=== PATIENT | female | born 1970 | race Asian ===

== ENCOUNTER 2016-06-17 12:28 | Inpatient (IN) | payer MEDICAID ==
[~2016-06-17] VITALS: Ht 156.2 cm; Wt 64.0 kg
--- NOTE | ~2016-06-17 | ECH ---
Transthoracic Echocardiography Report (TTE) Demographics Patient Name ARA, Date of Study 06/20/2016 [place] Patient Number [id number] Visit Number [id number] Date of 1970 Room Number 505 Accession Number [id number] Gender Female Age 46 year(s) Referring Edd Vasquez MD Room Cooler Installer Rosaura Castellanos Physician Kai Strickland MD [facility] Physician Interpreting King Mau Ugalde MD Piledriver Carpenter Physician Supervising Ordering Physician Kai Strickland MD/RUBEN WHEELER Nurse Stress Medical Device Sales Representative Conclusions Contractility Score Summary Normal Left Ventricular contractility was noted. Summary Technically good exam. The estimated left ventricular ejection fraction is 60%. Diastolic assessment reveals Grade I diastolic dysfunction. The left atrium is mildly dilated by LA volume index measurement. Mild tricuspid regurgitation by color Doppler. There is mild pulmonary hypertension. The pulmonary pressure (RVSP) is 40 mmHg. No evidence of valvular endocarditis. Procedure Type of Study TTE procedure:Echo Complete SF. Procedure Date Date: 06/20/2016 Start: 02:31 PM Technical Quality: Good visualization Additional Indications:Sepsis,Peritonitis,History of drug abuse Appropriate Use Criteria: 7 Height: 61 inches Weight: 134 pounds BSA: 1.59 m Rhythm: NSR HR: 88 bpm BP: 109/80 mmHg M-Mode/2D Measurements LV Diastolic Dimension: 4.38 cm LV Systolic Dimension: 3.34 cm LV Septum Diastolic: 0.63 cm LV PW Diastolic: 0.58 cm AO Root Dimension: 2.64 cm Cardiac Output: 4.18 l/min LA Dimension: 3.17 cm Cardiac Index: 2.63 l/min*m RV Diastolic Dimension: 2.77 cm LA volume index: 36 ml/m LVOT: 1.86 cm LVOT VTI: 17.47 cm RV Base: 3.4 cm LV Stroke volume: 47.44 ml RV Mid: 2.3 cm LV Stroke volume index: 29.84 ml/m TAPSE: 1.8 cm TDI-S': 11 cm/s Doppler Measurements AV Peak Velocity: 1.2 m/s MV Peak E-Wave: 0.85 m/s AV Peak Gradient: 5.76 mmHg MV Peak A-Wave: 0.85 m/s AV Mean Gradient: 3.64 mmHg MV E/A Ratio: 1 LVOT Peak Velocity: 0.97 m/s MV P1/2t: 44.5 msec AV Area (Continuity):2.07 cm MV Deceleration Time: 140.9 msec TR Velocity:2.95 m/s MV Area (PHT): 4.95 cm TR Gradient:34.81 mmHg PV Peak Velocity: 0.84 m/s Estimated RAP:5 mmHg PV Peak Gradient: 2.8 mmHg Estimated RVSP: 40 mmHg Estimated PASP: 39.81 mmHg E' Septal Velocity: 0.06 m/s A' Septal Velocity: 0.08 m/s E' Lateral Velocity: 0.1 m/s A' Lateral Velocity: 0.11 m/s RA Area: 9.9 cm Findings Left Ventricle Normal left ventricle size and function. Diastolic assessment reveals Grade I diastolic dysfunction. Right Ventricle Normal right ventricle structure and function. Left Atrium The left atrium is mildly dilated by LA volume index measurement. Right Atrium Normal right atrial size. Mitral Valve Normal mitral valve structure and function. Mild mitral regurgitation by color Doppler. Aortic Valve Normal aortic valve structure and function. Tricuspid Valve Normal tricuspid valve structure and function. Mild tricuspid regurgitation by color Doppler. There is mild pulmonary hypertension. The pulmonary pressure (RVSP) is 40 mmHg. Pulmonic Valve Normal pulmonic valve structure and function. Mild pulmonic valve regurgitation by color Doppler. Pericardial Effusion No evidence of pericardial effusion. Miscellaneous Visualized portions of the aortic root and ascending aorta appear normal in size. Pleural Effusion No evidence of pleural effusion. Contractility Score LV regional wall motion:(0-Non visualized 1-Normal 2-Hypokinesis 3-Akinesis 4-Dyskinesis 5-Aneurysm) Signature
--- NOTE | 2016-06-18 12:15 | ER ---
ADMIT: 06/17/2016 RM/LOC: ER [facility] MR#: [id number] [address] [address] LAWRENCE BULLOCK [address] [place] [address] Emergency Room Report SEX: F AGE: 46 : 1970 DATE: 06/17/2016 This 46-year-old, comes to the Emergency Department with abdominal pain times past 2 or 3 days and the temperature of 102. She has a history of ovarian cancer with peritoneal involvement as well as metastases to the lungs. Said the pain has been present for weeks but it has gotten worse. She is on a fentanyl patch as well as hydrocodone and Neurontin for pain control but has not been able to get on top of this pain. She denies nausea or vomiting. No cough. No shortness of breath. No chest pain. It is diffuse, sharp, crampy abdominal pain. PAST HISTORY: As mentioned ovarian CA with metastasis. PHYSICAL EXAM: GENERAL: This is a middle-aged lady in no acute distress. LUNGS: Clear to auscultation. CARDIOVASCULAR: Regular rate and rhythm. No murmurs, rubs, or gallops. ABDOMEN: Diffusely tender with guarding and rebound. EXTREMITIES: Unremarkable. 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 LABORATORY DATA: CBC was done at Oncology today white count was 1.6, hemoglobin of 11.9, platelets were 131,000, and absolute neutrophil count was 1.1. She was started on Levaquin from Oncology orally. UA showed 7 wbc's and many bacteria. CMP was done in the Emergency Department, was essentially unremarkable. CT scan of the abdomen showed no acute changes. The patient was being admitted for intractable abdominal pain. She was given 1 mg of Dilaudid in the Emergency Department which helped substantially. She should be admitted to adjust her pain medicine prior to being discharged home. DIAGNOSIS: Intractable abdominal pain secondary to ovarian cancer with metastasis. Benji Crespo MD/ laura JOB #: [id number] CC: Benji Crespo MD, Attending Physician
--- NOTE | 2016-06-21 09:37 | CO ---
ADMIT: 06/17/2016 RM/LOC: 505 [facility] MR#: [id number] [address] [address] LAWRENCE BULLOCK [address] [place] [address] Consultation SEX: F AGE: 46 : 1970 DATE OF CONSULTATION: 06/20/2016 ATTENDING PHYSICIAN: Noel Puga CONSULTING PHYSICIAN: Jodi Quinn MD REASON FOR CONSULT: Peritonitis. HISTORY OF PRESENT ILLNESS: The patient is a 46-year-old woman with history of metastatic ovarian cancer diagnosed in 2012. She is currently undergoing chemotherapy and her last chemotherapy was 1 week prior to admission. She presented to the ER with complaining of severe abdominal pain and fevers. It was associated with nausea and vomiting. She also has history of recurrent ascites and undergoes frequent paracentesis with Interventional Radiology. Last paracentesis was done on June 01, 2016. She underwent a CT scan and abdominal ultrasound and paracentesis which was suggestive of peritonitis. Total wbc of 4580 in the peritoneal fluid and 98% of polymorphonuclear wbc. Peritoneal fluid culture is growing yeast and additional organisms likely anaerobes. She was started on Zosyn and later micafungin was added. She was neutropenic at the time of admission and is getting Granix. 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 PAST MEDICAL HISTORY: 1. Metastatic ovarian cancer diagnosed in 2012 status post debulking surgery. 2. Recurrent ascites. 3. Intractable abdominal pain. FAMILY HISTORY: Significant for diabetes mellitus in her mother. SOCIAL HISTORY: Patient smokes 1 pack which lasts her for 3 days. Denies any alcohol. She has history of meth and marijuana use in the past. ALLERGIES: NO KNOWN DRUG ALLERGIES. CURRENT MEDICATIONS: Include: 1. Colace. 2. MiraLax. 3. Neurontin. 4. Protonix. 5. Senokot. 6. Granix. 7. Micafungin 100 mg once daily. 8. Zosyn 3.375 g every 8 hours. REVIEW OF SYSTEMS: Ten-point review of systems negative except as mentioned in HPI. PHYSICAL EXAMINATION: VITAL SIGNS: Current temperature 97.9, T-max 100.3, ADMIT: 06/17/2016 RM/LOC: 505 [facility] MR#: [id number] [address] [address] [facility] [address] [place] [address] Consultation SEX: F AGE: 46 : 1970 heart rate 98, respirations 20, blood pressure 109/80 and 99% on room air. GENERAL: No acute distress. HEENT. Head, normocephalic and atraumatic. Extraocular movements intact. Oral mucosa dry. LYMPH: No palpable anterior/posterior cervical or supraclavicular lymphadenopathy. CHEST: Decreased breath sounds bilaterally. CARDIOVASCULAR: S1 and S2 heard. Regular rate and rhythm. ABDOMEN: Distended. Diffuse tenderness to palpation. Ascites noted. Active bowel sounds. PSYCH: Normal affect. Memory intact. SKIN: No rash noted on exposed skin. DATA REVIEW: Per HPI. CT scan of abdomen and pelvis showed metastatic ovarian cancer, stable findings. Vworjaff-zx-vrehi ascites, with increased peritoneal enhancement. ASSESSMENT: 1. Neutropenic fever secondary to 2. Fungal peritonitis. 3. Polymicrobial peritonitis. 4. Metastatic ovarian cancer. 5. Neutropenia. 6. History of recreational drug use. 7. Recurrent ascites. 8. Intractable abdominal pain. PLAN: Given the yeast in the peritoneal fluid, I will continue her on micafungin. The peritoneal fluid also growing additional organisms likely anaerobes. Hence, I will continue her on Zosyn for now. Her blood cultures have been no growth to date. Given her history of recreational drug use, I will also check HIV and hepatitis B and C antibody. Her neutropenia is resolving. We will follow her closely. Thank you for the consult and I will continue to follow. Jodi Quinn MD/ laura JOB #: [id number] CC: Noel Puga, Attending Physician Noel Puga, Family Physician
--- NOTE | 2016-06-23 21:48 | HP ---
ADMIT: 06/17/2016 RM/LOC: 505 [facility] MR#: [id number] [address] [address] LAWRENCE BULLOCK [address] [place] [address] History and Physical SEX: F AGE: 46 : 1970 DATE OF SERVICE: 06/17/2016 HISTORY OF PRESENT ILLNESS: This is a 46-year-old female with a past medical history of metastatic ovarian cancer on treatment with gemcitabine, Abraxane, and Avastin. She is admitted with abdominal pain and fevers that have worsened over the past day, who reports the fever of 102 degrees last night and she took some Aleve at that time. Abdominal pain is sharp and has worsened over the past few days. She started a Fentanyl patch on Monday, which has helped minimally. She does report she has had multiple paracentesis to extract fluid from her abdomen and feels like she is reaccumulating fluid. Reports abdominal pain is generalized and there is no particular area that hurts worse. Denies any nausea, vomiting, diarrhea, or constipation. She is still having bowel movements. Denies any changes in urination. No dysuria, incontinence, increased frequency. She denies any abdominal surgeries and reports that she thinks she still has a gallbladder and appendix, however, per chart review, it appears she has had a debulking surgery at [facility] in 2012. Denies any alleviating factors. Reports pain is worse with any movement or palpation. REVIEW OF SYSTEMS: CONSTITUTIONAL: Endorses fatigue and malaise and fevers. HEENT: No congestion, rhinorrhea, sore throat. RESPIRATORY: No shortness of breath, cough. CARDIOVASCULAR: No chest pain, chest tightness, palpitations. SKIN: No rashes, redness, swelling. Denies tenderness or redness over port site. All other systems are negative except for what is listed in the HPI. PAST MEDICAL HISTORY: 1. Metastatic ovarian cancer with mets to liver and spleen, status post debulking surgery at [facility] in 2012. 2. Paracentesis performed regularly, the last being on June 01 where 2.75 L of ascitic fluid was removed. FAMILY HISTORY: Noncontributory. SOCIAL HISTORY: The patient is a current smoker and denies nicotine patch. Denies alcohol or other drug use currently. PHYSICAL EXAMINATION: VITAL SIGNS: At time of exam include temperature of 100.1 degrees Fahrenheit, pulse of 104, respiratory rate of 18, blood pressure 117/85, oxygen saturation 95% on room air. GENERAL: Alert and oriented, in moderate distress due to pain, appears non- toxic. HEENT: Mucous membranes moist, poor dentition, pharynx non-erythematous and without lesions. No cervical lymphadenopathy noted. Conjunctiva non-injected bilaterally. CARDIOVASCULAR: Slightly tachycardic, otherwise regular rate and rhythm, no murmurs or gallops noted. RESPIRATORY: Lungs clear to auscultation bilaterally. Normal respiratory ADMIT: 06/17/2016 RM/LOC: 505 [facility] MR#: [id number] [facility] [address] [id number] [place] [address] History and Physical SEX: F AGE: 46 : 1970 effort. Normal work of breathing. GASTROINTESTINAL: Diffusely tender to palpation in all 4 quadrants of abdomen. Abdomen mildly distended. Scar is noted, otherwise no lesions noted. Normal bowel sounds, abdomen soft. SKIN: Port site non-erythematous, no induration, nontender. Peripheral IV on right forearm, nontender, non-erythematous. No other skin lesions noted. NEUROLOGIC: Moving all 4 extremities. Cranial nerves grossly intact. ASSESSMENT AND PLAN: A 46-year-old female with metastatic ovarian cancer admitted with acute worsening of abdominal pain and fevers concerning for bacterial peritonitis. 1. Sepsis. a. Suspect secondary to bacterial peritonitis, has had a recent paracentesis on June 01. Blood and urine cultures are pending. b. We will start Zosyn to cover for spontaneous bacterial peritonitis and also other potential etiologies. Methicillin-resistant Staphylococcus aureus coverage not dictated at this time as the patient has no signs or symptoms concerning for skin infections and port site looks clear. We will plan for therapeutic and diagnostic paracentesis tomorrow morning and we will obtain bedside cultures. Continue p.r.n. Tylenol for fevers. 2. Metastatic ovarian cancer. a. Dr. Garcia evaluated the patient in hospital today. b. Recently received gemcitabine, Abraxane, and Avastin. c. ANC 1.1. d. Has had frequent therapeutic paracentesis to remove ascites fluid. e. CT showing again moderate to large ascites even after 2.75 L was removed on 06/01/2016. Suspect therapeutic paracentesis will partially remove some of the patient's pain. f. We will continue Fentanyl patch and home oxycodone. We will add ADMIT: 06/17/2016 RM/LOC: 505 [facility] MR#: [id number] [address] [place] [address] History and Physical SEX: F AGE: 46 : 1970 Dilaudid 1 mg every two hours p.r.n. for severe pain. The patient also has Tylenol available for pain and fever. 3. Mild hypercalcemia. a. Corrected calcium 2.6. We will start normal saline at 125 mL/hr and recheck in the a.m. Renal function and other electrolytes are within normal limits. 4. Disposition: Admit to medical floor, final disposition pending, but expectation will require hospitalization of a few days. 5. Full code. 6. Deep venous thrombosis prophylaxis: Holding Lovenox for paracentesis tomorrow. 7. Diet: General diet as tolerated. Hemalatha Samano MD / Noel Puga MD / laura JOB #: [id number] CC: Noel Puga, Attending Physician Noel Puga, Family Physician
[2016-06-29] MEDS ORDERED: COLACE-DPS100 MG PO (12:58)
[2016-06-29] MEDS ORDERED: MILK OF MAGNESI10 ML PO (12:59)
[2016-06-29] MEDS ORDERED: MIRALAX PACKET17 GM PO (12:59)
[2016-06-29] MEDS ORDERED: SENOKOT DPS8.6 MG PO (12:59)
[2016-06-29] MEDS ORDERED: NEURONTIN DPS300 MG PO (12:59)
[2016-06-29] MEDS ORDERED: PROTONIX40 MG PO (12:59)
[2016-06-29] MEDS ORDERED: DURAGESIC1 EAC1 TP (13:00)
[2016-06-29] MEDS ORDERED: INVANZ1 GM IV (13:01)
[2016-06-29] MEDS ORDERED: MYCAMINE100 MG IV (13:02)
[2016-06-29] MEDS ORDERED: DILAUDID2 MG PO (13:02)
[2016-06-29] MEDS ORDERED: LOVENOX DP40 MG/0.4 SQ (13:03)
[2016-06-29] MEDS ORDERED: NEURONTIN DPS600 MG PO (13:04)
--- NOTE | 2016-06-29 21:04 | DS ---
ADMIT: 06/17/2016 RM/LOC: 505 [facility] MR#: [id number] [address] [address] LAWRENCE BULLOCK [address] [place] [address] Discharge Summary SEX: F AGE: 46 : 1970 ADMISSION DATE: 06/17/2016 DISCHARGE DATE: 06/28/2016 CONSULTATIONS: 1. Meet Garcia MD, with Oncology. 2. Jodi Quinn MD, with Infectious Disease. DIAGNOSES: 1. Metastatic ovarian cancer. 2. Polymicrobial peritonitis. 3. Fungal peritonitis with obinna tropicalis. 4. Intractable pain secondary to malignancy and peritonitis. REASON FOR ADMISSION: The patient is a 46-year-old female with an extensive past medical history from an Oncology standpoint. Presented to the emergency room with fevers, worsening abdominal pain. Admitted for further stabilization. HOSPITAL COURSE: The patient was admitted. Placed on increasing pain medication regimen. Ultimately underwent a diagnostic paracentesis. Ultimately grew multiple organisms, both bacterial as well as fungal. Placed on broad-spectrum antibiotics and antifungals. Infectious Disease was consulted. They tailored the antibiotic and antifungal regimen. 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 Ultimately able to titrate up her Duragesic patch as well as her oral Dilaudid to a reasonable level to where she felt it was able to be transitioned for an outpatient regimen. Long discussions were had with her regarding overall goals of care. End of life discussion. She wishes to hold off on this at this point in time. Arrangements were made for her to go to assisted facility for her IV antibiotics at this time. She will have follow up with Oncology per their plan in the next week or two. Follow up with me to establish in the clinic in the next couple of weeks as well. DISCHARGE MEDICATIONS: Please see discharge MAR which I fully reviewed. She will be on ertapenem as well as some micafungin IV. Noel Puga MD/ kayla JOB #: [id number] CC: Noel Puga MD, Attending Physician Noel Puga MD, Family Physician
--- NOTE | 2016-07-01 09:47 | CO ---
ADMIT: 06/17/2016 RM/LOC: 505 [facility] MR#: [id number] [address] [address] LAWRENCE VELAZQUEZ [address] [place] [address] Consultation SEX: F AGE: 46 : 1970 DATE OF CONSULTATION: 06/17/2016 ATTENDING PHYSICIAN: Noel Puga MD CONSULTING PHYSICIAN: Meet Garcia MD REASON FOR CONSULTATION: 1. Stage IV ovarian cancer. 2. Peritonitis and positive ascites. HISTORY AND PHYSICAL: Mrs. Velazquez is a 46-year-old, pleasant woman, very well-known to me, has a stage IV ovarian cancer, just recently started chemotherapy with gemcitabine, Avastatin, and Taxol. She did receive Opdivo in the past, but her cancer had not responded to it. Currently, she was admitted due to severe abdominal pain. A CT scan was done, but did not show any obstruction, looks like she has bacterial peritonitis due to the ascites that she has from the ovarian cancer. The patient is not getting antibiotics and ID is also consulted. She is on pain control with a OUTDOOR ILLUMINATING ENGINEER pump as well as a fentanyl patch. She does not have any good care and support at home. She denies any vomiting. She denies any diarrhea. Denies any shortness of breath, but her shortness of breath and mild chest pain is because of her severe, severe abdominal pain. PAST MEDICAL HISTORY: Stage IV ovarian cancer, on chemotherapy. SOCIAL HISTORY: She was ex-IV drug abuser, but currently she denies any illicit drug use. Denies any smoking or drinking alcohol. FAMILY HISTORY: Noncontributory. She was adopted. ALLERGIES: SHE IS ALLERGIC TO CARBOPLATIN. PER THE PATIENT, SHE DOES NOT KNOW WHAT HAPPENS WITH THE CARBOPLATIN, BUT HAD A VERY BAD REACTION IN THE PAST. MEDICATIONS: She is on antibiotics. Please review the medication list. She is also getting chemotherapy, gemcitabine, Abraxane, and Avastin. REVIEW OF SYSTEMS: GENERAL: In moderate discomfort due to pain in the abdomen. RESPIRATORY: Mild shortness of breath due to the pain in the abdomen, ascites. CARDIOVASCULAR: No chest pain. ENDOCRINOLOGY: No polyuria. No polydipsia. GENITOURINARY: No urgency. No frequency. GASTROINTESTINAL: No nausea. No vomiting. No diarrhea. NUTRITION: Adequate. INFECTION: No fevers. SKIN: No rash. EXTREMITIES: No swelling. ADMIT: 06/17/2016 RM/LOC: 505 [facility] MR#: [id number] [address] [address] [facility]ICKI VELAZQUEZSAN FRANCISCO [address] [place] [address] Consultation SEX: F AGE: 46 : 1970 PHYSICAL EXAMINATION: VITAL SIGNS: Temperature 100.1, pulse 104, respirations 18, and blood pressure 117/85. HEENT: Normocephalic, atraumatic. LUNGS: Clear. HEART: S1, S2 heard. Regular rate and rhythm. ABDOMEN: Distended. Tender on palpation. Positive bowel sounds. EXTREMITIES: No edema. NEUROLOGIC: Alert, awake, and oriented x3. LYMPHATICS: No abnormal lymph nodes palpated. SKIN: No rash. LABORATORY DATA: WBC is 1.6, hemoglobin 11.9, and platelet 131. Normal kidney and normal LFTs. CT scan of the abdomen, findings noted. IMPRESSION AND RECOMMENDATIONS: Mrs. Velazquez is a 46-year-old woman, very well known to me, has a history of stage IV metastatic ovarian cancer, on chemotherapy, was admitted due to severe abdominal pain, likely infective peritonitis. 1. Ascites with severe abdominal pain, likely infective peritonitis. Her primary doctor is on board, probably she needs to get paracentesis and sent for the cultures. She is on antibiotics, continue that, and ID will be consulted if it is positive. Dr. Puga is taking care of her at this point of time. I will follow up very closely. She will probably need PleurX prior to going home due to the recurrent malignant ascites on top of now she probably is developing infective peritonitis. 2. Stage IV ovarian cancer, on chemotherapy. She will not get chemotherapy until her infection clears out. The chemotherapy will be on hold now. She was getting gemcitabine, Abraxane, and Avastin. 3. Neutropenia, likely from chemotherapy. She will need Granix to support her count because of suspicious of infection in her abdomen. I have reviewed all the medical records. I have also discussed with the patient in detail. I have spent 60 minutes of time reviewing the records, discussing with the patient about the treatment plan, workup needed to be done, prognosis of the ovarian cancer, and more than 50% of my time was spent on those discussions. Thank you for your consultation and the opportunity in taking care of the patient. Meet Garcia MD/ laura JOB #: [id number] CC: Noel Puga MD, Attending Physician Noel Puga MD, Family Physician
[2016-08-21] MEDS ORDERED: MICRO-K DPS10 MEQ PO (15:53)
[2016-08-21] MEDS ORDERED: ALEVE220 M1 PO (15:54)
[2016-08-21] MEDS ORDERED: COMPAZINE10 MG PO (15:55)
[2016-08-21] MEDS ORDERED: LEVAQUIN DPS500 MG PO (15:55)
[2016-09-10] MEDS ORDERED: DECADRON-DPS4 MG PO (11:28)
[2016-09-10] MEDS ORDERED: LEXAPRO DPS10 MG PO (11:29)
[2016-09-10] MEDS ORDERED: MAG-OX400 MG PO (11:29)
[2016-09-10] MEDS ORDERED: NYSTATIN100000 UNI PO (11:30)
[2016-09-10] MEDS ORDERED: ZYVOX600 MG PO (11:31)
[2016-09-10] MEDS ORDERED: TYLENOL DPS325 MG PO (11:31)
[2016-09-10] MEDS ORDERED: ZOFRAN4 MG PO (11:34)
[2016-09-10] MEDS ORDERED: MYCAMINE100 MG IV (11:54)
== END 2016-06-28 17:08 | DRG 867 ==
LOC: ER 12:28 → 5MS 15:15
PROVIDERS: ADMIT Internal Medicine
PROC: 0W9G3ZX Drainage of Peritoneal Cavity, Percutaneous Approach, Diagnostic (ICD-10-PCS; principal; 2016-06-20)
PROC: 0W9G30Z Drainage of Peritoneal Cavity with Drainage Device, Percutaneous Approach (ICD-10-PCS; 2016-06-23)
PROC: 30233N1 Transfusion of Nonautologous Red Blood Cells into Peripheral Vein, Percutaneous Approach (ICD-10-PCS; 2016-06-24)
DX: B37.89 Other sites of candidiasis (principal); K65.8 Other peritonitis; K65.1 Peritoneal abscess; R18.0 Malignant ascites; C78.6 Secondary malignant neoplasm of retroperitoneum and peritoneum; C78.02 Secondary malignant neoplasm of left lung; C78.01 Secondary malignant neoplasm of right lung; E83.52 Hypercalcemia; E46 Unspecified protein-calorie malnutrition; C78.89 Secondary malignant neoplasm of other digestive organs; C78.7 Secondary malignant neoplasm of liver and intrahepatic bile duct; D70.1 Agranulocytosis secondary to cancer chemotherapy; B96.89 Other specified bacterial agents as the cause of diseases classified elsewhere; D64.81 Anemia due to antineoplastic chemotherapy; G89.3 Neoplasm related pain (acute) (chronic); F17.210 Nicotine dependence, cigarettes, uncomplicated; Z85.43 Personal history of malignant neoplasm of ovary

== ENCOUNTER 2016-07-01 17:13 | Emergency (ER) | payer MEDICAID ==
[~2016-07-01 17:13] MED LIST: COLACE-DPS100 MG PO; DILAUDID2 MG PO; DURAGESIC1 EAC1 TP; INVANZ1 GM IV; LOVENOX DP40 MG/0.4 SQ; MILK OF MAGNESI10 ML PO; MIRALAX PACKET17 GM PO; MYCAMINE100 MG IV; NEURONTIN DPS300 MG PO; NEURONTIN DPS600 MG PO; PROTONIX40 MG PO; SENOKOT DPS8.6 MG PO
--- NOTE | 2016-07-09 08:11 | ER ---
ADMIT: 07/01/2016 RM/LOC: ER [facility] MR#: [id number] [address] [address] [place] [address] [place] [id number] Emergency Room Report SEX: F AGE: 46 : 1970 DATE: 07/01/2016 ADDENDUM: CHIEF COMPLAINT: Abdominal drain producing more drainage. HISTORY OF PRESENT ILLNESS: This is a 46-year-old who has a history of ovarian cancer with metastasis. She has ascites with it. Just recently on Monday, she had Sincere-Rodriguez drain placed into her abdomen for bacterial and fungal spontaneous peritonitis. At this time, she is receiving antibiotic and antifungals over at [facility]. Again, they were concerned about the magnitude of her drainage, so sent her to the ER to be evaluated. PAST MEDICAL HISTORY: 1. Metastatic ovarian cancer. 2. Pancreatitis. 3. Ascites. MEDICATIONS: Please see nurse's note. ALLERGIES: CARBOPLATIN. SOCIAL HISTORY: Denies any tobacco, drug, or alcohol use. FAMILY HISTORY: Noncontributory. REVIEW OF SYSTEMS: CONSTITUTIONAL: She denies any fevers, chills, or sweats. CARDIOVASCULAR AND RESPIRATORY: Denies any chest pain or shortness of breath. I did notice that she was slightly tachycardic. She denies feeling any palpitations with that. GASTROINTESTINAL AND GENITOURINARY: Denies any nausea, vomiting, or diarrhea. She says she does have some [id number] abdominal pain, but the medications they are giving her are controlling her pain. All systems otherwise negative. PHYSICAL EXAMINATION: VITAL SIGNS: Blood pressure 124/80, pulse is 124, respirations 18, temperature 98.2, and saturation of oxygen is 97% on room air. GENERAL APPEARANCE: In no acute distress and alert. In fact, when she gets here, she says she is hungry and asked for a sandwich right away. HEENT: Pharynx is moist. No tonsillar swelling or exudate. HEART: Tachycardic, but no murmurs, rubs, or gallops. LUNGS: CTA bilaterally. No wheezes, rales, or rhonchi. ABDOMEN: Soft, really actually not distended at this time. She does have tenderness more on the left upper and lower quadrants than the right that is where her drain is. It does seem to be draining without any difficulty. SKIN: Normal color, warm, and dry. No rashes noted. NEURO AND PSYCH: She is alert and oriented x3. Mood and affect normal. MUSCULOSKELETAL: Full range of motion with all extremities. ADMIT: 07/01/2016 RM/LOC: ER [facility] MR#: [id number] [address] [place] [address] Emergency Room Report SEX: F AGE: 46 : 1970 COURSE IN THE EMERGENCY ROOM: CBC showed a white count of 8.1, which is improved from 4 days ago, hemoglobin 9.2, and platelets are 1020. Procalcitonin is elevated at 11.15. Her urine is clear. Lactic acid is 1.7. CMP is normal except for potassium of 3.2, albumin low at 1.4, BUN of 4. Ultrasound is done. It does show increased fluid in the left side of the abdomen compared to previous ultrasound. Dr. Pride was called at 1955 hours regarding this patient. At this time, we both agreed that she is okay to go back to skilled care, continue her antibiotic and antifungal as prescribed. I am going to put in an order per Dr. Pride for Monday to have IR evaluate for another drain. CLINICAL IMPRESSION: 1. Ovarian cancer with metastasis and ascites. 2. Spontaneous peritonitis of both multibacterial and fungal. DISPOSITION: Stable at discharge and will follow up with Dr. Puga next week and be evaluated for another drain on Monday. TINA Pitts / Benji Crespo MD / modl JOB #: [id number] CC: Benji Crespo MD, Attending Physician
[2016-08-21] MEDS ORDERED: MICRO-K DPS10 MEQ PO (15:53)
[2016-08-21] MEDS ORDERED: ALEVE220 M1 PO (15:54)
[2016-08-21] MEDS ORDERED: LEVAQUIN DPS500 MG PO (15:55)
[2016-08-21] MEDS ORDERED: COMPAZINE10 MG PO (15:55)
[2016-09-10] MEDS ORDERED: DECADRON-DPS4 MG PO (11:28)
[2016-09-10] MEDS ORDERED: MAG-OX400 MG PO (11:29)
[2016-09-10] MEDS ORDERED: LEXAPRO DPS10 MG PO (11:29)
[2016-09-10] MEDS ORDERED: NYSTATIN100000 UNI PO (11:30)
[2016-09-10] MEDS ORDERED: TYLENOL DPS325 MG PO (11:31)
[2016-09-10] MEDS ORDERED: ZYVOX600 MG PO (11:31)
[2016-09-10] MEDS ORDERED: ZOFRAN4 MG PO (11:34)
[2016-09-10] MEDS ORDERED: MYCAMINE100 MG IV (11:54)
== END 2016-07-01 20:15 | disposition home or self-care (01) ==
LOC: ER 17:13
DX: C56.9 Malignant neoplasm of unspecified ovary (principal); C79.9 Secondary malignant neoplasm of unspecified site; R18.0 Malignant ascites; K65.2 Spontaneous bacterial peritonitis; Z88.8 Allergy status to other drugs, medicaments and biological substances

== ENCOUNTER → 2016-07-12 | Outpatient (CLI) | payer MEDICAID ==
[~2016-07-12] MED LIST changes: +ALEVE220 M1 PO; +COMPAZINE10 MG PO; +DECADRON-DPS4 MG PO; +LEVAQUIN DPS500 MG PO; +LEXAPRO DPS10 MG PO; +MAG-OX400 MG PO; +MICRO-K DPS10 MEQ PO; +NYSTATIN100000 UNI PO; +TYLENOL DPS325 MG PO; +ZOFRAN4 MG PO; +ZYVOX600 MG PO
== END | disposition home or self-care (01) ==
LOC: RAD.S 10:00
PROC: BW11YZZ Fluoroscopy of Abdomen and Pelvis using Other Contrast (ICD-10-PCS; principal; 2016-07-12)
DX: K65.1 Peritoneal abscess (principal)

== ENCOUNTER → 2016-07-29 | Outpatient (CLI) | payer MEDICAID | END | disposition home or self-care (01) | LOC: RAD.S 07-26 13:00 | PROC: 3E0M3KZ Introduction of Other Diagnostic Substance into Peritoneal Cavity, Percutaneous Approach (ICD-10-PCS; principal; 2016-07-29) | DX: K65.1 Peritoneal abscess (principal) ==

== ENCOUNTER 2016-08-18 09:17 | Inpatient (IN) | payer MEDICAID ==
[~2016-08-18] VITALS: Ht 157.5 cm; Wt 51.4 kg
[~2016-08-18 09:17] MED LIST changes: -ALEVE220 M1 PO; -COMPAZINE10 MG PO; -DECADRON-DPS4 MG PO; -LEVAQUIN DPS500 MG PO; -LEXAPRO DPS10 MG PO; -MAG-OX400 MG PO; -MICRO-K DPS10 MEQ PO; -NYSTATIN100000 UNI PO; -TYLENOL DPS325 MG PO; -ZOFRAN4 MG PO; -ZYVOX600 MG PO
--- NOTE | 2016-08-19 16:19 | ER ---
ADMIT: 08/18/2016 RM/LOC: 428 [facility] MR#: [id number] [address] [address] [place] [address] Emergency Room Report SEX: F AGE: 46 : 1970 DATE: 08/18/2016 TIME: 0917 hours. Please refer to my T-sheet for complete H and P. Briefly, patient is a 46-year- old who comes in with a fever and sore throat. She has a known history of being on chemotherapy for ovarian cancer. She said it has been bothering her for 2-3 days. Fever is up to 101. She has been nauseous and I believe very well. PHYSICAL EXAMINATION: VITAL SIGNS: Blood pressure 127/80, pulse 124, respirations 18, temp 100.1, and sat 97%. GENERAL: She is no acute distress. HEENT: Her throat shows no white plaque, no gross deformities. No exudate. It is dry. LUNGS: Clear. HEART: Regular or tachy. ABDOMEN: Soft, really nontender. SKIN: No rash. NEUROLOGIC: Alert and oriented, nonfocal. EMERGENCY DEPARTMENT COURSE: We did the sepsis protocol. We gave her 30 per kilo bolus. I gave her Zofran. We sent blood cultures. Her CBC came back normal except white count 22.1, hemoglobin 9.4, and platelets 1423. Chemistries normal except alkaline phosphatase 165. INR was 1.17. Cardiac enzymes are negative. Lactate was 2.3. UA was normal except 20 red cells. Blood cultures x2 were sent. EKG was sinus rhythm, no changes. Chest x-ray was negative. I talked to Dr. Anaya addiction nurse for Dr. Swanson who will admit to the hospital. We started antibiotics. ASSESSMENT: 1. Fever. 2. Early sepsis. 3. Oncology patient with immune suppression. PLAN: Admit to the hospital. Sean Kamara MD/ laura JOB #: [id number] CC: Noel Puga MD, Attending Physician Noel Puga MD, Family Physician
--- NOTE | 2016-08-20 21:42 | HP ---
ADMIT: 08/18/2016 RM/LOC: 428 [facility] MR#: [id number] [address] [address] [place] [address] History and Physical SEX: F AGE: 46 : 1970 DATE OF SERVICE: 08/18/2016 HISTORY: Ms. Velazquez is a 46-year-old female with past medical history significant for tobacco abuse as well ovarian cancer complicated by peritonitis and malnutrition who presents to the emergency room with fever, chills, sore throat, and some vomiting. She states that she developed sore throat about 3 days ago. She states that her throat is swollen off that she is having difficulty swallowing or eating. She has never had anything like this before. She does not think that these symptoms started immediately after taking any of her medications. She tells me that she has had some difficulties taking the medications, but this is mainly secondary to the pain that she currently has. She denies any aggravating or alleviating factors. She states that she was going to try some Magic mouthwash, but did not get to the pharmacy to pick this up before coming to the emergency room. She states that she has not tried any Tylenol or other medications such as NSAIDs. She states that she was told that she had a fever here. She states that she has not noticed being more warm at her living facility. She states that she is a little bit chilled at this point in time. She has some runny nose, but no nasal congestion or drainage from her eyes or ears. She tells me that she does have a little bit of pain in her ears, but thinks this is radiation from her throat. She denies any shortness of breath or chest pain. She states that she has some abdominal pain, but it is about the same as usual. This abdominal pain is located in her lower abdomen and does not radiate. She does not have any difficulties using the restroom and denies any problems with urination or bowel movements. She denies any swelling in her lower extremities or any other symptoms at this point in time. She tells me that her last chemotherapy was on Monday. She is not sure when will get the next one and she does not recall the names of the chemotherapy agents that she is currently receiving. In the emergency room, the patient has received 1.6 liters of normal saline at this point in time. She also received some Zofran and is supposed to receive vancomycin and Zosyn for antibiotic coverage. PAST MEDICAL HISTORY: 1. Ovarian cancer, diagnosed in 2012 status post hysterectomy in 2012. 2. Polymicrobial peritonitis. The patient was recently hospitalized for this a couple months ago. 3. Tobacco abuse. PAST SURGICAL HISTORY: Hysterectomy in 2012. HOME MEDICATIONS: 1. Fentanyl 125 mcg through a patch that is changed every 3 days. She states that she last changed her patch on 08/15/2016. 2. Gabapentin 300 mg p.o. b.i.d. with 600 mg p.o. at bedtime. 3. Dilaudid 8 mg p.o. p.r.n. for severe pain every 4 hours. 4. Magnesium hydroxide. 5. Pantoprazole 40 mg p.o. b.i.d. 6. MiraLax 17 g p.o. b.i.d. ADMIT: 08/18/2016 RM/LOC: 428 [facility] MR#: [id number] [address] [place] [id number] [place] [address] History and Physical SEX: F AGE: 46 : 1970 7. Magaly-Colace 4 tablets p.o. b.i.d. 8. Potassium supplement of unknown strength. 9. Zofran p.r.n. ALLERGIES: CARBOPLATIN. FAMILY HISTORY: Includes diabetes and GA in her mother. She has children who are healthy and live in town. She tells me that she has no other family medical history. SOCIAL HISTORY: She uses tobacco. She smokes about 5 cigarettes per day. She denies any alcohol use. She denies any drug use. 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 She is not currently employed and lives in the [facility] here in [place]. She enjoys spending time with family. PHYSICAL EXAMINATION: VITAL SIGNS: On admission, she had a temperature of 101.1 Fahrenheit as documented in the emergency room, heart rate is 102, blood pressure of 94/59 with MAP of 68, respiration rate of 15, and saturating on room air without difficulties. GENERAL: She is resting in the hospital bed. She appears mildly uncomfortable. HEENT: Normocephalic and atraumatic. Hearing is intact to conversation. She does have some mild erythema of her external auditory canal bilaterally. No tympanic bulge noted. Eyes are anicteric with normal pink conjunctivae. Extraocular eye muscles are intact. She has moist mucous membranes with posterior pharyngeal wall erythema. No tonsillar exudates noted. Nose is midline without any erythema or drainage noted. NECK: She does not have any lymphadenopathy noted in the cervical or submandibular locations. LUNGS: Clear to auscultation bilaterally on anterior exam. No wheezes, rhonchi, or rales noted. She has a right port in her upper chest. The area surrounding the port is normal without any erythema or drainage noted. HEART: Regular rhythm. She is tachycardic. No murmurs, rubs, or gallops. Pulses were symmetric. No JVD noted. No lower extremity noted. ABDOMEN: Soft. There is some tenderness with palpation over the lower quadrant bilaterally. There is an old healed lesion over the left lower quadrant consistent with removal of a drain. She does not have any organomegaly noted. Bowel sounds are hypoactive. EXTREMITIES: Pulses are intact in all extremities and symmetric. She does not have any lower extremity edema. She has normal pink skin demonstrating adequate perfusion. SKIN: No lesions noted over her face, arms, abdomen, chest, or legs. NEUROLOGIC: Grossly normal. LABS AND IMAGING: Initial labs demonstrate a WBC of 22,100 with 47% bands, this is increased from her lab work obtained on 08/16, when she had 18% bands. Hemoglobin is 9.4, decreased from 9.9 on 08/16. Platelets are elevated at 1423,000, this is decreased from 1466 on 08/16. The electrolytes are within ADMIT: 08/18/2016 RM/LOC: 428 [facility] MR#: [id number] [address] [address] [place] [address] History and Physical SEX: F AGE: 46 : 1970 normal. She has a creatinine of 0.6 and glucose of 80. LFTs demonstrate an alkaline phosphatase of 165, bilirubin of 0.3. AST and ALT are normal. Total protein of 6.7 and albumin of 2.0. Coagulation studies demonstrate an INR of 1.1 with an APTT of 38.6. Lactic acid is initially 2.3 in ED. Procalcitonin is 0.17. Microbiology: She has blood culture x2 peripherally drawn and pending. UA demonstrates some red blood cell with trace leukocyte esterase. Nitrite is negative. No pyuria noted. Influenza screen is negative. Chest x-ray is stable and does not show any changes from previous. ASSESSMENT AND PLAN: Ms. Velazquez is a 46-year-old female with past medical history significant for ovarian cancer status post complications including recent infection with polymicrobial peritonitis, malnutrition and history of continued tobacco abuse who presents with sore throat, found to have severe sepsis. She is being admitted to the General Medicine floor with telemetry. 1. Severe sepsis of unknown source. The patient has met criteria including having an elevated temperature, tachycardia as well as WBC greater than 20,000 with more than 10% bands. At this point in time, the source is unknown as she has a negative UA, chest x-ray. She does have blood cultures pending. She does not have any other localizing symptoms other than having a sore throat. She was screened for influenza and is currently negative. Her procalcitonin is 0.17 indicating that a bacterial source is less likely. At this point in time, we will follow up the blood cultures that she has peripherally. Requested that a blood culture be obtained from the central line she has in place for her chemotherapy. After she has received her fluid resuscitation, we will repeat her lactic acid. If this continues to be elevated, we would consider CT scan of her abdomen to further evaluate. We will place her on maintenance IV fluids at 100 mL/hour for a total of additional 2 liters. Her MAP should be greater than 65. If this becomes an issue, then we will consider admission to the ICU for pressor support. We will repeat a procalcitonin in the morning as well as daily BMP and CBC until she demonstrates a trend down. At this point in time, she does not have any evidence of a localizing infection. We will hold off on antibiotics at this point in time. However, it should be noted that should she be unable to maintain her MAP greater than 65, will become further unstable, we will start broad-spectrum antibiotics with vancomycin and Zosyn. 2. Pharyngitis. At this point in time, viral etiology seems likely, however, could consider getting a screen for strep pharyngitis. Continue to treat supportively with Zofran and Magic Mouthwash which contains viscous lidocaine. 3. Tobacco abuse. She continues to smoke approximately 5 cigarettes per day. We will order a nicotine patch to be applied every 24 hours. ADMIT: 08/18/2016 RM/LOC: 428 [facility] MR#: [id number] [facility] [address] [address] [place] [address] History and Physical SEX: F AGE: 46 : 1970 4. Malnutrition secondary to her ovarian cancer. General diet will be encouraged as able. Consider nutrition consult. Consider addition of supplements to her regular meals. 5. Ovarian cancer. She is currently undergoing chemotherapy. Her last chemotherapy session was on August 15. She is unsure what her regimen is. We will continue her home medications. Obtain control that includes 125 mcg patch every 3 days. Continue gabapentin or Dilaudid. We will continue the bowel regimen of MiraLax and Magaly-Colace. If the patient becomes constipated, then we can consider further excavation of bowel regimen. 6. Diet: General. 7. DVT prophylaxis, Lovenox 40 mg subcutaneously daily. Adelina Benson MD Resident / Noel Puga MD / laura JOB #: [id number] CC: Noel Puga, Attending Physician Noel Puga, Family Physician
[2016-08-21] MEDS ORDERED: MICRO-K DPS10 MEQ PO (15:53)
[2016-08-21] MEDS ORDERED: ALEVE220 M1 PO (15:54)
[2016-08-21] MEDS ORDERED: LEVAQUIN DPS500 MG PO (15:55)
[2016-08-21] MEDS ORDERED: COMPAZINE10 MG PO (15:55)
--- NOTE | 2016-08-24 08:23 | DS ---
ADMIT: 08/18/2016 RM/LOC: 428 [facility] MR#: [id number] [address] [address] [place] [address] Discharge Summary SEX: F AGE: 46 : 1970 ADMISSION DATE: 08/18/2016 DISCHARGE DATE: 08/19/2016 CONSULTATIONS: None. FINAL DIAGNOSES: 1. Sepsis. 2. Metastatic ovarian cancer. 3. Malnutrition. 4. Pharyngitis. 5. Anemia secondary to chemotherapy. REASON FOR ADMISSION: The patient is a 46-year-old female, very pleasant female, with unfortunate metastatic ovarian cancer. She came into the ER with fever, sore throat, and overall not feeling well. Admitted for further stabilization. HOSPITAL COURSE: The patient met criteria for sepsis. Given IV fluid. Started on empiric antibiotics. Infectious workup overall was negative for any clear etiology. Likely was some underlying viral illness. She overall quickly improved sooner than expected. [place] safe and stable for discharge to home. Gave her one unit of blood due to her anemia from her chemotherapy. She was eager to discharge and seems stable enough to do so. We arranged for this. DISCHARGE INSTRUCTIONS: Please see discharge MAR, which I reviewed. Notably, she will be on some Levaquin for a short course. Follow up with Oncology as previously planned. Please see discharge MAR for full details. Noel Puga MD/ dorinda JOB #: [id number] CC: Noel Puga MD, Attending Physician Noel Puga MD, Family Physician
[2016-09-10] MEDS ORDERED: DECADRON-DPS4 MG PO (11:28)
[2016-09-10] MEDS ORDERED: MAG-OX400 MG PO (11:29)
[2016-09-10] MEDS ORDERED: LEXAPRO DPS10 MG PO (11:29)
[2016-09-10] MEDS ORDERED: NYSTATIN100000 UNI PO (11:30)
[2016-09-10] MEDS ORDERED: ZYVOX600 MG PO (11:31)
[2016-09-10] MEDS ORDERED: TYLENOL DPS325 MG PO (11:31)
[2016-09-10] MEDS ORDERED: ZOFRAN4 MG PO (11:34)
[2016-09-10] MEDS ORDERED: MYCAMINE100 MG IV (11:54)
== END 2016-08-19 18:30 | disposition home or self-care (01) | DRG 872 ==
LOC: ER 09:17 → 4PCU 11:00
PROVIDERS: ADMIT Internal Medicine
PROC: 30233N1 Transfusion of Nonautologous Red Blood Cells into Peripheral Vein, Percutaneous Approach (ICD-10-PCS; principal; 2016-08-19)
DX: A41.9 Sepsis, unspecified organism (principal); C79.9 Secondary malignant neoplasm of unspecified site; E46 Unspecified protein-calorie malnutrition; D64.81 Anemia due to antineoplastic chemotherapy; J02.9 Acute pharyngitis, unspecified; R65.20 Severe sepsis without septic shock; F17.210 Nicotine dependence, cigarettes, uncomplicated; Z82.49 Family history of ischemic heart disease and other diseases of the circulatory system; Z85.43 Personal history of malignant neoplasm of ovary

== ENCOUNTER → 2016-08-23 | Outpatient (CLI) | payer MEDICAID ==
[~2016-08-23] MED LIST changes: +ALEVE220 M1 PO; +COMPAZINE10 MG PO; +DECADRON-DPS4 MG PO; +LEVAQUIN DPS500 MG PO; +LEXAPRO DPS10 MG PO; +MAG-OX400 MG PO; +MICRO-K DPS10 MEQ PO; +NYSTATIN100000 UNI PO; +TYLENOL DPS325 MG PO; +ZOFRAN4 MG PO; +ZYVOX600 MG PO
== END | disposition home or self-care (01) ==
LOC: RAD.S 14:59
DX: R00.0 Tachycardia, unspecified (principal); C57.8 Malignant neoplasm of overlapping sites of female genital organs; C56.9 Malignant neoplasm of unspecified ovary; C78.7 Secondary malignant neoplasm of liver and intrahepatic bile duct; C78.89 Secondary malignant neoplasm of other digestive organs; D63.0 Anemia in neoplastic disease; R77.0 Abnormality of albumin

== ENCOUNTER 2016-08-31 11:36 | Inpatient (IN) | payer MEDICAID ==
[~2016-08-31] VITALS: Ht 157.5 cm; Wt 50.2 kg
[~2016-08-31 11:36] MED LIST changes: -DECADRON-DPS4 MG PO; -LEXAPRO DPS10 MG PO; -MAG-OX400 MG PO; -NYSTATIN100000 UNI PO; -TYLENOL DPS325 MG PO; -ZOFRAN4 MG PO; -ZYVOX600 MG PO
--- NOTE | 2016-09-01 10:51 | ER ---
ADMIT: 08/31/2016 RM/LOC: 305 [facility] MR#: [id number] [address] [address] [place] [address] Emergency Room Report SEX: F AGE: 46 : 1970 DATE: 08/31/2016 CHIEF COMPLAINT: Abdominal pain and decreased level of alertness. HISTORY OF PRESENT ILLNESS: The patient is a 46-year-old female with a diagnosis of metastatic ovarian cancer, who presents to the ER for a couple days of worsening abdominal pain and bloating/distention. She states that she has had increased debility to eat and drink because her belly feels so full. Additionally, the patient states that she has significantly increased weakness and feels like she has no energy. She feels like she is a little more short of breath than normal, but otherwise denies any chest pain. Denies any new numbness, tingling, or weakness in any extremity. She is not sure if she has had any fevers. REVIEW OF SYSTEMS: Ten-point review of systems is done and otherwise negative except as in HPI. PAST MEDICAL HISTORY: Significant for metastatic ovarian cancer. PREVIOUS SURGERIES: She has had abdominal drain before for abdominal infection and hysterectomy. MEDICATIONS: See nurse's note. ALLERGIES: NONE. SOCIAL HISTORY: Denies alcohol or drug use. The patient does still smoke. PHYSICAL EXAMINATION: VITAL SIGNS: Blood pressure 107/74, heart rate 126, respirations 25, temperature 98.2, sats 93% on room air. GENERAL: The patient is arousable to voice, but is very tired and falls asleep numerous times during the examination. She is in no respiratory distress. LUNGS: Clear. HEART: She has a normal rhythm, but tachycardic. ABDOMEN: Distended/protuberant. It is diffusely tender. SKIN: Warm and dry. She has 1+ bilateral lower extremity edema. No skin lesions or rashes are noted. LABORATORY DATA: White count of 13.7, hemoglobin of 7.7, ANC of 9.5. Sodium 134, potassium 3.3, albumin 1.6. Urinalysis shows 4.0 urobilinogen with 1+ ketones, 1+ protein, lactic acid of 2, procalcitonin 2.82, INR 1.69. EKG, sinus tachycardia at a rate of 125. No signs of ST-elevation or acute AR. CT abdomen shows a large fluid and gas collection in the peritoneal space concerning for recurrent infection given the patient's prior history of peritoneal infection. Hepatic and splenic metastasis. Chest x-ray, nothing acute. CT head shows: 1. No acute intracranial pathology. 2. A 2.9 cm fluid density mass in the left parietal region, probably benign ADMIT: 08/31/2016 RM/LOC: 305 [facility] MR#: [id number] [address] [place] [id number] [place] [address] Emergency Room Report SEX: F AGE: 46 : 1970 arachnoid cyst. However with history of no malignancy, recommend brain MRI without and with IV contrast. EMERGENCY DEPARTMENT COURSE: The patient screened positive for sepsis. We did sepsis protocol on the patient. The CT abdomen shows a large fluid collection and with her history that very well could be an infectious process. Apparently, her previous abdominal infection had fungal involvement, so we are giving her an antifungal here in the Emergency Department as well as meropenem. I spoke to Dr. Puga, and he will be admitting the patient to the ICU in critical condition with the diagnoses of: 1. Abdominal abscess. 2. Possible early sepsis. 3. Metastatic ovarian cancer. 4. Abdominal pain. 5. Hypokalemia. 6. Tachycardia. 7. Anemia. Jarrett Saini MD/ laura JOB #: [id number] CC: Noel Puga MD, Attending Physician Noel Puga MD, Family Physician
--- NOTE | 2016-09-01 12:05 | HP ---
ADMIT: 08/31/2016 RM/LOC: 305 [facility] MR#: [id number] [address] [address] [place] [address] History and Physical SEX: F AGE: 46 : 1970 DATE OF SERVICE: CHIEF COMPLAINT: Abdominal pain. HISTORY OF PRESENT ILLNESS: The patient is a fantastic 46-year-old female, well known to me, who has metastatic ovarian cancer. I just saw her in our clinic not long ago, a couple of weeks. She had been feeling really quite well. She reports now that maybe over the last week, she just has not been feeling as well. Over the last 24 hours, much more abdominal pain and distention. Had not been eating well over the last couple of days. Pain worsened. Brought to the emergency room. Otherwise, denies any shortness of breath. No headaches. Just a lot of abdominal pain. Normal stools lately with more on the side of constipation, she states. PAST MEDICAL HISTORY: 1. Metastatic ovarian cancer diagnosed initially in 2012. 2. History of polymicrobial peritonitis, fungal peritonitis. 3. History of tobacco abuse. MEDICATIONS: She is on: 1. Fentanyl. 2. Gabapentin. 3. Dilaudid. 4. Pantoprazole. 5. MiraLax orally. Please see list for full details. FAMILY HISTORY: Includes diabetes, coronary artery disease. SOCIAL HISTORY: Currently living at homeless senior care [facility]. Gets along well there, she states. She continues to smoke occasionally. REVIEW OF SYSTEMS: As per HPI. Otherwise, completely reviewed and negative. PHYSICAL EXAMINATION: VITAL SIGNS: Temperature 99.8, pulse 92, respiratory rate 24, blood pressure 108/74, O2 saturation 98% on room air. GENERAL: She is alert and oriented x3. No acute distress. Very lethargic compared to normal, however. Tires easily during conversation, but otherwise appropriate. HEENT: Head normocephalic, atraumatic. Pupils are equal bilaterally. No icterus. Very dry mucous membranes with some white plaquing, thrush. LUNGS: Clear to auscultation bilaterally. No wheezes, rales, or rhonchi. HEART: Regular rate and rhythm. No murmurs, rubs, or gallops. ABDOMEN: Soft. Distended, firm. No guarding. No rigidity. Overall just some generalized [id number]-zg-qmbicrdw tenderness. Bowel sounds hyperactive. High pitched. EXTREMITIES: No cyanosis, clubbing, or edema. MUSCULOSKELETAL: 5/5 strength in all 4 extremities with easy fatigability. ADMIT: 08/31/2016 RM/LOC: 305 [facility] MR#: [id number] [address] [place] [address] History and Physical SEX: F AGE: 46 : 1970 NEUROLOGICAL: No focal deficits noted. Cranial nerves II through XII are grossly intact. SKIN: No rashes. Dry. LABORATORY DATA: INR 1.7. White count is 13,000, hemoglobin 7.7, platelets 131, potassium 3.3. Sodium 134, lactic acid 2.0, procalcitonin 2.82, creatinine 0.6, AST 72, mag 2.1. Abdomen shows a large fluid and gas in the peritoneal space concerning for recurrent infection given patient's history of peritoneal infection, hepatic and splenic metastases. ASSESSMENT: 1. Abdominal abscess. 2. Metastatic ovarian cancer. 3. Sepsis. 4. Malnutrition. 5. Full code status. PLAN: At this point in time, she looks very ill. We will give her some IV antibiotics. Antifungals as well given her history. Start some IV fluids. She needs it drained, and given her overall poor functional status, I do not even know if she would be able to survive surgery. There is some questionable viscus perforation on CT scan read although favors abscess. We will plan on drain at this point in time with Interventional Radiology tomorrow. We will try to support her until then. We will give her some IV vitamin K to try to see if we can have any improvement of her INR. Her nutrition is here. May need to likely start some PPN. Have Oncology consult and see her as well. Start some nystatin swish and spit for her thrush. The patient is agreeable to the plan. Trying to discuss code status with her. She does not want to discuss it at this time, she states. She will be full code as previous. Noel Puga MD/ laura JOB #: [id number] CC: Noel Puga, Attending Physician Noel Puga, Family Physician
--- NOTE | 2016-09-06 14:30 | CO ---
ADMIT: 08/31/2016 RM/LOC: 511 [facility] MR#: [id number] [address] [address] [place] [address] Consultation SEX: F AGE: 46 : 1970 DATE OF CONSULTATION: 09/05/2016 ATTENDING PHYSICIAN: Noel Puga CONSULTING PHYSICIAN: Maria R Asif APRN TIME IN: 1200 hours. TIME OUT: 1235 hours. REASON FOR CONSULTATION: Supportive care consultation was requested by Dr. Puga for discussion of goals for care. HISTORY OF PRESENT ILLNESS: The patient is a 46-year-old female with history of metastatic ovarian cancer for which she has been receiving chemotherapy. She also has a history of peritonitis. She is admitted on August [address] of the abdomen showed fluid in the peritoneal space. She is admitted for treatment of recurrent peritonitis as well as abdominal abscess and sepsis. Drain was placed on September 01. Overall she has really not been doing all that well. She has severe malnutrition and ongoing weakness. The plan at discharge is for her to go to skilled care for rehab. Due to her multiple complexities, supportive care consultation was requested to discuss goals for care. In terms of advanced directives, the patient does not have any sort of advanced directives on file. She is a full code. Her son is her next of kin decision maker and his name is Lb Merritt and his phone #. Symptomatically, the patient had ongoing issues with back pain. Dr. Puga is adjusting her pain medications currently to hopefully get her more comfortable. Additionally she complains of nausea and weakness. Overall she appears significantly debilitated. PAST MEDICAL HISTORY: Metastatic ovarian cancer diagnosed in 2012, history of polymicrobial peritonitis/fungal peritonitis, history of tobacco abuse. ALLERGIES: SHE IS ALLERGIC TO CARBOPLATIN. CURRENT MEDICATIONS: Please see the patient's MAR for specific routes and dosages. Her current medications are as follows. 1. Potassium chloride. 2. Fentanyl Duragesic patch. 3. Dilaudid. 4. Zyvox. 5. Compazine. 6. Apresoline. 7. Magnesium oxide. 8. Lexapro. ADMIT: 08/31/2016 RM/LOC: 511 [facility] MR#: [id number] [address] [address] [place] [address] Consultation SEX: F AGE: 46 : 1970 9. Colace. 10.Maalox. 11.Xanax. 12.Mycamine. 13.D10W. 14.TPN. 15.Tylenol. 16.Zofran. 17.Dilaudid. 18.Magic mouthwash. SOCIAL HISTORY: The patient was living at [facility] homeless snf. She uses tobacco occasionally. She is an ex IV drug user. FAMILY HISTORY: She was adopted. FUNCTIONAL REVIEW: Prior to her hospital stay, it sounds like she was at [facility] and could care for herself for the most part. Her palliative performance scale prior to admission was around 60% to 70%. Currently, she is mostly in bed. She is requiring mainly assistance. She is fatigued and weak. Her current palliative performance scale is 40%. REVIEW OF SYSTEMS: A 10-point review of systems was completed and other than those pertinent positives and negatives mentioned the HPI, it is negative. PHYSICAL EXAMINATION: GENERAL: The patient is examined in the bed. She is fatigued but in no acute distress. VITAL SIGNS: Temperature 96.8, pulse 72, respirations 16, blood pressure 150/95, and oxygen 98% on room air. HEENT: Head is normocephalic. Pupils are 3 mm bilaterally and brisk. Oral mucosa pink and moist. NECK: Supple. RESPIRATORY: Respirations are equal and nonlabored at rest. Lungs diminished in the bases bilaterally. CARDIOVASCULAR: Rate rhythm regular without murmurs, rubs, or gallops. No edema noted. GASTROINTESTINAL: Distended. Bowel sounds are hypoactive. MUSCULOSKELETAL: Generalized weakness. No obvious joint deformities. INTEGUMENTARY: Skin turgor is fair. NEUROLOGIC: Alert and oriented x3. She will follow commands. PSYCHIATRIC: Calm and cooperative. She is guarded with conversation but pleasant. DIAGNOSTIC DATA: Sodium 134, potassium 3.7, BUN 11, creatinine 0.2, total protein 5.5, and albumin 1.3. WBC is 14.4, hemoglobin 11.0, platelets are 250. IMPRESSION: ADMIT: 08/31/2016 RM/LOC: 511 [facility] MR#: [id number] [address] [place], [place] [id number] [place] [address] Consultation SEX: F AGE: 46 : 1970 1. Debility. 2. Back pain. 3. Fatigue. 4. Malaise. 5. Severe protein calorie malnutrition. 6. Nausea. 7. Peritonitis. 8. Abdominal abscess. 9. Metastatic ovarian cancer. 10.Difficulty coping. 11.Anxiety. 12.Palliative care. 13.Patient is a full code. PLAN: 1. I was able to meet with the patient as well as her son and brother at the bedside. It sounds like the patient's primary care provider did attempt an end of life discussion this morning and that the patient was not very receptive to this. I introduced myself and role that I have in the time ahead. We reviewed the patient's overall status and goals. She states that she would not be doing any further chemotherapy. She states that her hope is to get some strength back and she states that she wants to get strong enough to eventually "walk out of here." We gently discussed if this will be a realistic goals for her. The patient does seem to recognize that things were not going the way that she hopes and that they may continue to decline in the time ahead. We discussed shifting Hope to things like comfort and quality of life. I did emphasize that the patient does have control of how things will go in terms of her comfort and quality of life in the time ahead. We reviewed the hospice philosophy and she appears to be processing this information. She and her family deny any questions regarding this. Overall she is guarded but ADMIT: 08/31/2016 RM/LOC: 511 [facility] MR#: [id number] [address] [place] [id number] [place] [address] Consultation SEX: F AGE: 46 : 1970 cooperative during our conversation. Much support was offered to her. She does not talk whole lot during our discussion, but is agreeable to me coming back tomorrow to talk about things more. 2. I did not review code status during this visit due to the patient being previously fairly resistant to end-of-life discussions earlier today. As I establish rapport with her, I will attempt to hopefully discuss this tomorrow during my visit pending her willingness. We would like to thank Dr. Puga'mary lou for the invitation to participate in this patient's care. Total consultation time was 35 minutes from 1200 hours to 1235 hours with 20 minutes from 1205 hours to 1225 hours spent face to face the patient family discussing goals for care and providing counseling and support. Maria R Asif APRN/ laura JOB #: [id number] CC: Noel Puga, Attending Physician Noel Puga, Family Physician
[2016-09-10] MEDS ORDERED: DECADRON-DPS4 MG PO (11:28)
[2016-09-10] MEDS ORDERED: MAG-OX400 MG PO (11:29)
[2016-09-10] MEDS ORDERED: LEXAPRO DPS10 MG PO (11:29)
[2016-09-10] MEDS ORDERED: NYSTATIN100000 UNI PO (11:30)
[2016-09-10] MEDS ORDERED: ZYVOX600 MG PO (11:31)
[2016-09-10] MEDS ORDERED: TYLENOL DPS325 MG PO (11:31)
[2016-09-10] MEDS ORDERED: ZOFRAN4 MG PO (11:34)
[2016-09-10] MEDS ORDERED: MYCAMINE100 MG IV (11:54)
--- NOTE | 2016-09-16 10:58 | CO ---
ADMIT: 08/31/2016 RM/LOC: 511 [facility] MR#: [id number] [address] [address] [place] [address] Consultation SEX: F AGE: 46 : 1970 DATE OF CONSULTATION: 09/02/2016 ATTENDING PHYSICIAN: Noel Puga CONSULTING PHYSICIAN: Meet Garcia MD REASONS FOR CONSULTATION: 1. Stage IV ovarian cancer, on active chemotherapy. 2. Anemia of chronic disease. HISTORY OF PRESENT ILLNESS: Mrs. Velazquez is a 46-year-old, pleasant woman, very well known to me. She has a history of metastatic stage IV ovarian cancer, on active treatment. She is getting gemcitabine and Abraxane and Avastin. She was admitted in the hospital due to severe abdominal pain, suspecting of recurrent peritonitis. She did have peritonitis in the past and hospitalized for multiple days and was on antibiotics and recovered, and was started on chemotherapy. She did have a good response to her ovarian cancer. This looks like her ascites has reoccurred and her peritonitis has reoccurred again. She probably will need prophylactic antibiotic in the future. On the workup, her hemoglobin is 6.9 today. She feels very bad, very fatigued. She is depressed. She is crying and she is saying she wants to go home, but she is definitely not able to go home today. She is at risk. She fell while she went to bathroom. There are multiple problems right now with her. No nausea. No vomiting. PAST MEDICAL HISTORY: 1. Stage IV ovarian cancer, on active chemotherapy. 2. History of drug abuse in the past. 3. History of peritonitis, treated in the past. SOCIAL HISTORY: She is ex-IV drug user, but currently she does not do that. She denied any smoking or drinking as well. FAMILY HISTORY: She was adopted, so she does not know the family history of her biological mom and dad. ALLERGIES: SHE IS ALLERGIC TO CARBOPLATIN. PER THE PATIENT, SHE DID HAVE VERY BAD REACTIONS WHEN SHE GOT THIS CHEMOTHERAPY AT [facility]. MEDICATIONS: She is gettin. Gemcitabine. 2. Abraxane. 3. Avastin. 4. Dexamethasone. She is currently on antibiotics and antifungals. REVIEW OF SYSTEMS: GENERAL: Not in acute distress. Her pain is significantly better. RESPIRATORY: No shortness of breath. ADMIT: 08/31/2016 RM/LOC: 511 [facility] MR#: [id number] [address] [address] [place] [address] Consultation SEX: F AGE: 46 : 1970 CARDIOVASCULAR: No chest pain. ENDOCRINOLOGY: No polyuria. No polydipsia. GENITOURINARY: No urgency. No frequency. GASTROINTESTINAL: No nausea, no vomiting. No diarrhea. NUTRITION: Inadequate, malnourished. She is getting TPN. INFECTION: Afebrile. SKIN: No rash. EXTREMITIES: No swelling. PHYSICAL EXAMINATION: VITAL SIGNS: Temperature 97, pulse is 83, respirations 16, blood pressure 111/79. HEENT: Normocephalic and atraumatic. LUNGS: Clear. HEART: S1 and S2 heard. Regular rate and rhythm. ABDOMEN: Soft, tender to deep palpation. Positive bowel sounds. Positive peritonitis. EXTREMITIES: No edema. NEUROLOGIC: Awake, alert, oriented x3. No focal neurological deficit. SKIN: No rashes. LYMPHATICS: No abnormal lymph nodes palpated. LABORATORY DATA: WBC is 12.6, hemoglobin 6.9, platelets 193. Normal creatinine and normal LFTs with a potassium 2.8, and albumin of 1.2. IMPRESSION AND RECOMMENDATIONS: Mrs. Velazquez is a 46-year-old pleasant woman with a diagnosis of stage IV metastatic ovarian cancer as well as peritonitis, who was admitted due to the recurrence of peritonitis. 1. Recurrent peritonitis plus abdominal abscess. She had paracentesis done, and she currently has a pigtail tube in place for the drainage. She is on antibiotics. Dr. Puga and ID on the board. 2. History of stage IV ovarian cancer on active chemotherapy with gemcitabine and Abraxane and Avastin. We probably need to hold ADMIT: 08/31/2016 RM/LOC: 511 [facility] MR#: [id number] [address] [address] [place] [address] Consultation SEX: F AGE: 46 : 1970 chemotherapy for a while before she clears of her infection. 3. Symptomatic anemia with a hemoglobin count of 6.9, severe. Therefore, she needs 2 units of blood transfusion. Leuk reduced today. I will follow up her CBC. 4. Extremely malnourished. She is on TPN and Nutrition will be on board. She needs to eat and we need to improve her nutritional nutrition status. 5. Hypoalbuminemia. Albumin is 1.2, probably we may have to give her some albumin tomorrow if her albumin does not improve. 6. Electrolyte abnormalities. The primary doctor is already replacing potassium and magnesium as needed. Thank you for your consultation and opportunity in taking care of your patient. Meet Garcia MD/ laura JOB #: [id number] CC: Noel Puga, Attending Physician Noel Puga, Family Physician
--- NOTE | 2016-09-20 14:02 | DS ---
ADMIT: 08/31/2016 RM/LOC: 511 [facility] MR#: [id number] [address] [address] [place] [address] Discharge Summary SEX: F AGE: 46 : 1970 ADMISSION DATE: 08/31/2016 DISCHARGE DATE: 09/09/2016 CONSULTATIONS: 1. Palliative care supportive care team. 2. Oncology. PROCEDURES: Underwent drain placement for peritoneal abscess. FINAL DIAGNOSES: 1. Abdominal abscess and peritonitis, fungal as well as VRE (Vancomycin- Resistant Enterococci). 2. Metastatic ovarian cancer. 3. Malnutrition. 4. Intractable abdominal pain. REASON FOR ADMISSION: The patient is a very pleasant, 46-year-old female, who presented to the emergency room with septic appearing large abdominal fluid collection concerning for abscess. Very ill and admitted for further stabilization. HOSPITAL COURSE: The patient was admitted. IV fluid resuscitation. Initially to the ICU given her severity of illness and presentation. She underwent drain placement. Large amount of purulent fluid. Ultimately grew out yeast as well as VRE. Placed on antibiotics. Slowly and steadily had some improvement. Decreased pain, although still was quite severe. Very malnourished. Was on TPN for a while. She was seen in consultation by Oncology as well as supportive care team. Ultimately she did elect to be DNR/DNI and was very steadfast in this. Did not want to do palliative care yet at this time. Otherwise, she ultimately was agreeable to care home and seeing if we can get her peritonitis and her pain under better control with further outpatient followup with Oncology if she improves. DISCHARGE INSTRUCTIONS: She will be discharged to [facility]. DISCHARGE MEDICATIONS: For discharge medications, please see discharge and transfer MAR. Notably, she will be on Linezolid for 21 days as well as micafungin. She will be following up with me in clinic in the next 10-14 days. Noel Puga MD/ damon JOB #: [id number] CC: Noel Puga MD, Attending Physician Noel Puga MD, Family Physician
== END 2016-09-09 12:17 | DRG 871 ==
LOC: ER 11:36 → 3ICU 14:10 → 5MS 14:10 → 3ICU 09-02 08:59 → 5MS 09-02 15:25
PROVIDERS: ADMIT Internal Medicine
PROC: 0D9W30Z Drainage of Peritoneum with Drainage Device, Percutaneous Approach (ICD-10-PCS; principal; 2016-09-01)
PROC: 3E0436Z Introduction of Nutritional Substance into Central Vein, Percutaneous Approach (ICD-10-PCS; principal; 2016-09-01)
PROC: 30233N1 Transfusion of Nonautologous Red Blood Cells into Peripheral Vein, Percutaneous Approach (ICD-10-PCS; 2016-09-02)
DX: A41.9 Sepsis, unspecified organism (principal); K65.1 Peritoneal abscess; E43 Unspecified severe protein-calorie malnutrition; B37.89 Other sites of candidiasis; K65.9 Peritonitis, unspecified; B37.0 Candidal stomatitis; C78.7 Secondary malignant neoplasm of liver and intrahepatic bile duct; C78.89 Secondary malignant neoplasm of other digestive organs; B95.2 Enterococcus as the cause of diseases classified elsewhere; D64.81 Anemia due to antineoplastic chemotherapy; F41.9 Anxiety disorder, unspecified; F17.200 Nicotine dependence, unspecified, uncomplicated; E87.6 Hypokalemia; Z85.43 Personal history of malignant neoplasm of ovary; Z82.49 Family history of ischemic heart disease and other diseases of the circulatory system; Z16.21 Resistance to vancomycin; Z66 Do not resuscitate

== ENCOUNTER 2016-12-29 08:29 | Day surgery (SDC) | payer MEDICAID ==
[~2016-12-29] VITALS: Ht 157.5 cm; Wt 67.8 kg
[~2016-12-29 08:29] MED LIST changes: +DECADRON-DPS4 MG PO; +LEXAPRO DPS10 MG PO; +MAG-OX400 MG PO; +NYSTATIN100000 UNI PO; +TYLENOL DPS325 MG PO; +ZOFRAN4 MG PO; +ZYVOX600 MG PO
== END 2016-12-29 12:00 | disposition home or self-care (01) ==
LOC: RAD.S 08:29
PROC: 0W2FX0Z Change Drainage Device in Abdominal Wall, External Approach (ICD-10-PCS; principal; 2016-12-29)
DX: Z48.03 Encounter for change or removal of drains (principal); L02.11 Cutaneous abscess of neck; Z88.8 Allergy status to other drugs, medicaments and biological substances; Z79.899 Other long term (current) drug therapy; Z79.891 Long term (current) use of opiate analgesic